=== PATIENT | male | born 1965 | race Caucasian/White ===

== ENCOUNTER → 2016-12-26 | Day surgery (SDC) | payer BC ==
[~2016-12-26] MED LIST: ALLERGY10 M2 PO; ARAVA10 MG PO; BENADRYL25 M3 PO; LEVAQUIN PO; MOBIC15 MG PO; NASONEX17 GM NS; NORCO 10/3251 TAB PO; OXYCODONE HCL5 MG PO; PLAQUENIL200 MG PO; PREDNISOLONE5 MG PO; PROTONIX PO; SINGULAIR PO; ZYRTEC10 M5 PO
--- NOTE | ~2016-12-26 | OR ---
Unit #: [id number] #: [id number] Patient: KRISTIN RAMIREZ [id number] [address] [place], [place] [address] [id number] MR#: [id number] NAME: KRISTIN RAMIREZ ROOM: Date of Procedure: 12/26/2016 Admission Date: 12/26/2016 Surgeon: Nick Sandoval M.D. : 1965 Attending Physician: Nick Sandoval M.D. Primary Care Physician: Emilie Curtis M.D. OPERATIVE REPORT PREOPERATIVE DIAGNOSIS Colorectal cancer screening in an average-risk patient. PROCEDURES PERFORMED Colonoscopy with biopsies and colonoscopy with polypectomy. POSTOPERATIVE DIAGNOSES 1. The patient had two polyps. The first one was a small sessile polyp in the proximal ascending colon. This was removed using cold biopsy forceps. A second polyp was a pedunculated polyp about 2 cm in size in the proximal sigmoid colon. The latter was removed using snare cautery polypectomy. It was retrieved and sent for histology. 2. The patient had moderate pandiverticulosis. 3. Rest of the examination up to cecum and terminal ileum was normal. The quality of the prep was excellent. RECOMMENDATIONS Follow up the results of polyp histology and consider repeat colonoscopy in 5 years. SEDATION USED MAC. DESCRIPTION OF PROCEDURE Following detailed explanation of potential risks and complications of a colonoscopy, namely perforation, bleeding, and complication related to sedation, the patient was brought to GI lab and laid in the left lateral decubitus position. A digital rectal examination was performed which was normal. Lubricated tip of the Olympus video colonoscope was inserted through the anus and advanced under direct vision. The scope was advanced past rectosigmoid into descending colon. Multiple medium-sized diverticula were noted in this area. In addition, a pedunculated polyp was noted in the proximal sigmoid colon. The scope tip was then navigated all the way up to cecum with visualization of the ileocecal valve and the appendiceal orifice. Preparation was excellent with good visualization and photodocumentation was obtained. Last several inches of the terminal ileum were also visualized after intubation of the ileocecal valve and appeared normal. Successive segments of the colonic mucosa were examined upon withdrawal. The patient was noted to have multiple scattered diverticula throughout the entire colon. A diminutive polyp was noted in the proximal ascending colon. The latter was removed using cold biopsy forceps. The attention was then focused on the pedunculated polyp in the Unit #: [id number] #: [id number] Patient: KRISTIN RAMIREZ sigmoid colon. The latter was removed using snare cautery polypectomy. The polyp was retrieved and sent for histology. No additional polyps were noted. Other than the fact the patient had mild pandiverticulosis, no other abnormalities were noted. No hemorrhoids were noted at the anal verge. The scope was then withdrawn and the patient returned to the recovery area. He tolerated the procedure without any postprocedure complications. Dictated by... Jacki Porras/surendra TD: 12/27/2016 01:23 JOB #: [id number] OPERATIVE REPORT Page 1 of 1 X Nick Sandoval MD X PROCEDURE OPERATIVE NOTE
== END | disposition home or self-care (01) ==
LOC: COPS 06:43
DX: Z12.11 Encounter for screening for malignant neoplasm of colon (principal); D12.5 Benign neoplasm of sigmoid colon; K63.5 Polyp of colon; K57.30 Diverticulosis of large intestine without perforation or abscess without bleeding; K21.9 Gastro-esophageal reflux disease without esophagitis; M06.9 Rheumatoid arthritis, unspecified; Z90.49 Acquired absence of other specified parts of digestive tract; Z88.5 Allergy status to narcotic agent; Z91.040 Latex allergy status; Z79.899 Other long term (current) drug therapy
CPT/HCPCS: 88305; J2250